=== PATIENT | female | born 1990 ===

== ENCOUNTER 2021-11-13 13:13 | Emergency (ER) | payer OTHER, MEDICAID, SELFPAY ==
[2021-11-13 13:15] VITALS: BP 124/84; PULSE 85; RESP 12; TEMP 37.1; O2SAT 100; BMI 21.7
[2021-11-13] MEDS: ONDANSETRON 4 MG ODT SL (13:25)
--- NOTE | 2021-11-13 15:43 | ED_ITS ---
HPI - Nausea/Vomiting/Diarrhea <JIA Santiago - Last Filed: 11/13/21 18:37> General Chief complaint: Nausea/Vomiting/Diarrhea Stated complaint: Vomiting for 6 days Time Seen by Provider: 11/13/21 14:59 Mode of arrival: Family Vehicle History of Present Illness HPI Narrative: This is a 31-year-old female who is with implanted implanon contraception who presents to the emergency department complaining of nausea and vomiting today, COVID infection two weeks ago with nausea vomiting over the last 5-6 days. She endorses having loose stool but no diarrhea, denies any abnormal vaginal discharge, denies any dysuria, flank pain, fevers, shortness of breath, chest pain, or chance of . She states that she is not currently sexually active, denies any vaginal itching, urinary frequency, tenderness to a certain area of her abdomen. She endorses generalized discomfort and nausea all the time. Patient denies taking any pain medication, states that she took Zofran 4 hours ago, states that she still have the symptoms despite that. States that she started her menses today but states that she does not usually have pelvic cramps. Related Data Previous Rx's Medication Instructions Recorded hydrocortisone acetate 25 mg 25 mg DE DAILY PRN hemorrhoids 2 11/13/21 rectal suppository weeks #12 ea omeprazole 20 mg capsule,delayed 20 mg PO DAILY 2 weeks #14 caps 11/13/21 release promethazine 12.5 mg tablet 12.5 mg PO Q12H PRN nausea and 11/13/21 vomiting #10 tabs Allergies Allergy/AdvReac Type Severity Reaction Status Date / Time No Known Drug Allergies Allergy Verified 11/13/21 13:21 Review of Systems <JIA Santiago - Last Filed: 11/13/21 18:37> Review of Systems Narrative: General: denies fever, chills, endorses persistent nausea Head/Neck: denies headache, neck pain Eyes: denies visual changes, eye pain Cardio: denies chest pain, palpitations Respiratory: denies shortness of breath, cough GI: Endorses generalized abdominal discomfort with nausea and vomiting, denies any constipation, endorses loose stools : denies dysuria, hematuria or flank pain, endorses she started her menses today MSK: denies new joint pain, muscle weakness or swelling Skin: denies rash, itching or wound Neuro: denies numbness, tingling, dizziness Patient History <JIA Santiago - Last Filed: 11/13/21 18:37> Social History Smoking Status: Never smoker Smoking Status: Never smoker Substance Use Type: does not use Exam <JIA Santiago - Last Filed: 11/13/21 18:37> Narrative Exam Narrative: Independently reviewed vitals signs and nursing notes. General: cooperative, comfortable, in no acute distress, well groomed Head: atraumatic, symmetrical facial expressions Neck: supple Eyes: equal round and reactive, EOMI, conjunctiva normal Nose: nares patent, no rhinorrhea Mouth/Throat: moist mucus membranes Cardiovascular: regular rate and rhythm, no peripheral edema, warm extremities Respiratory: normal effort, able to speak in complete sentences, no audible wheezing, stridor, or rales. No retractions or tachypnea. GI: abdomen soft, nontender to palpation, nondistended, no masses, no exquisite tenderness with exam, without guarding or rebound. MSK: moves all extremities, neurovascularly intact, no weakness, normal tone Skin: brisk capillary refill, no rash, no erythema Neuro: normal speech and cognition, A&O x3 Psych: mental status is grossly normal, congruent mood, normal affect, pleasant and cooperative Initial Vital Signs Initial Vital Signs: Vital Signs Temperature 98.8 F 11/13/21 13:15 Pulse Rate 85 11/13/21 13:15 Respiratory Rate 12 11/13/21 13:15 Blood Pressure 124/84 11/13/21 13:15 Pulse Oximetry 100 11/13/21 13:15 Oxygen Delivery Method 11/13/21 13:15 <Nunu Mckinley DO - Last Filed: 11/15/21 13:15> Initial Vital Signs Initial Vital Signs: Vital Signs Temperature 98.8 F 11/13/21 13:15 Pulse Rate 85 11/13/21 13:15 Respiratory Rate 12 11/13/21 13:15 Blood Pressure 124/84 11/13/21 13:15 Pulse Oximetry 100 11/13/21 13:15 Oxygen Delivery Method 11/13/21 13:15 Course <Eleanor Rick [facility] - Last Filed: 11/13/21 18:37> Orders Ordered: Discontinued Medications Sodium Chloride (Normal Saline 0.9%) 1,000 mls @ 1,000 mls/hr IV BOLUS ONE Stop: 11/13/21 17:56 Last Admin: 11/13/21 17:08 Dose: 1,000 mls/hr Documented By: DEB Ketorolac Tromethamine (Ketorolac 30 Mg/Ml Vial) 15 mg IV NOW ONE Stop: 11/13/21 15:43 Last Admin: 11/13/21 15:55 Dose: 15 mg Documented By: DEB Ondansetron HCl (Ondansetron 4 Mg Odt) 4 mg SL NOW ONE Stop: 11/13/21 13:22 Last Admin: 11/13/21 13:25 Dose: 4 mg Documented By: MANJU Pantoprazole Sodium (Pantoprazole 40 Mg Vial) 20 mg IV NOW ONE Stop: 11/13/21 17:33 Last Admin: 11/13/21 17:40 Dose: 20 mg Documented By: DEB Promethazine HCl (Promethazine 25 Mg Tablet) 12.5 mg PO NOW ONE Stop: 11/13/21 17:33 Last Admin: 11/13/21 17:57 Dose: Not Given Documented By: DEB Vital Signs Vital signs: Vital Signs - 8 hr 11/13/21 13:15 Temperature 98.8 F Pulse Rate 85 Respiratory Rate 12 Blood Pressure 124/84 Pulse Oximetry 100 Oxygen Delivery Method Room Air <Nunu Mckinley DO - Last Filed: 11/15/21 13:15> Orders Ordered: Discontinued Medications Sodium Chloride (Normal Saline 0.9%) 1,000 mls @ 1,000 mls/hr IV BOLUS ONE Stop: 11/13/21 17:56 Last Admin: 11/13/21 17:08 Dose: 1,000 mls/hr Documented By: DEB Ketorolac Tromethamine (Ketorolac 30 Mg/Ml Vial) 15 mg IV NOW ONE Stop: 11/13/21 15:43 Last Admin: 11/13/21 15:55 Dose: 15 mg Documented By: DEB Ondansetron HCl (Ondansetron 4 Mg Odt) 4 mg SL NOW ONE Stop: 11/13/21 13:22 Last Admin: 11/13/21 13:25 Dose: 4 mg Documented By: MANJU Pantoprazole Sodium (Pantoprazole 40 Mg Vial) 20 mg IV NOW ONE Stop: 11/13/21 17:33 Last Admin: 11/13/21 17:40 Dose: 20 mg Documented By: DEB Promethazine HCl (Promethazine 25 Mg Tablet) 12.5 mg PO NOW ONE Stop: 11/13/21 17:33 Last Admin: 11/13/21 17:57 Dose: Not Given Documented By: DEB Vital Signs Vital signs: Vital Signs - 8 hr 11/13/21 13:15 Temperature 98.8 F Pulse Rate 85 Respiratory Rate 12 Blood Pressure 124/84 Pulse Oximetry 100 Oxygen Delivery Method Room Air MDM - Nausea/Vomiting/Diarrhea <JIA Santiago - Last Filed: 11/13/21 18:37> Lab Data Result diagrams: 11/13/21 15:40 11/13/21 15:40 Labs: Lab Results 11/13/21 11/13/21 11/13/21 Range/Units 15:40 15:40 15:59 WBC 9.4 (4.5-11.0) X10^3/uL RBC 5.31 H (4.0-5.2) X10^6/uL Hgb 16.1 H (12.0-16.0) g/dL Hct 46.8 H (36-46) % MCV 88.1 (80-100) fL MCH 30.3 (26-34) PG MCHC 34.4 (30-36) % RDW 13.1 (11.6-14.8) % Plt Count 374 (150-400) X10^3/uL Neut % (Auto) 76.6 H (50-75) % Lymph % (Auto) 15.9 L (25-40) % [place] % (Auto) 6.8 (3-14) % Eos % (Auto) 0.1 L (2-4) % Baso % (Auto) 0.6 (0-2) % Neut # (Auto) 7200 H (4942-3371) /uL Lymph # (Auto) 1500 (1762-6488) /uL [place] # (Auto) 600 (0-900) /uL Eos # (Auto) 0 (0-450) /uL Baso # (Auto) 100 (0-100) /uL Sodium 137 (137-145) mmol/L Potassium 3.5 (3.4-5.1) mmol/L Chloride 98 (98-107) mmol/L Carbon Dioxide 23 (22-32) mmol/L BUN 15 (7-17) mg/dL Creatinine 1.01 (0.52-1.04) mg/dL Estimated GFR > 60 (>60) mL/min BUN/Creatinine Ratio 14.9 (6-22) Glucose 88 (70-100) mg/dL Calcium 9.7 (8.4-10.2) mg/dL Total Bilirubin 1.6 H (0.2-1.3) mg/dL AST 26 (14-36) IU/L ALT 17 (<35) IU/L Alkaline Phosphatase 81 (38-126) U/L Total Protein 9.8 H (6.3-8.2) g/dL Albumin 5.6 H (3.5-5.0) g/dL Globulin 4.2 H (1.7-4.1) g/dL Albumin/Globulin Ratio 1.3 (1.0-2.8) Lipase 84 (23-300) U/L Ur Bilirubin Confirm (Negative) Urine RBC (0-5/HPF) Urine WBC (0-5/HPF) Ur Squamous Epith Cells (0-5/HPF) Calcium Oxalate Crystal Urine Bacteria (None) Urine Mucus (Negative) Ur Culture Indicated? SARS-CoV-2 (PCR) Negative (Negative) 11/13/21 11/13/21 Range/Units 16:00 16:00 WBC (4.5-11.0) X10^3/uL RBC (4.0-5.2) X10^6/uL Hgb (12.0-16.0) g/dL Hct (36-46) % MCV (80-100) fL MCH (26-34) PG MCHC (30-36) % RDW (11.6-14.8) % Plt Count (150-400) X10^3/uL Neut % (Auto) (50-75) % Lymph % (Auto) (25-40) % [place] % (Auto) (3-14) % Eos % (Auto) (2-4) % Baso % (Auto) (0-2) % Neut # (Auto) (5569-4835) /uL Lymph # (Auto) (8065-5681) /uL [place] # (Auto) (0-900) /uL Eos # (Auto) (0-450) /uL Baso # (Auto) (0-100) /uL Sodium (137-145) mmol/L Potassium (3.4-5.1) mmol/L Chloride (98-107) mmol/L Carbon Dioxide (22-32) mmol/L BUN (7-17) mg/dL Creatinine (0.52-1.04) mg/dL Estimated GFR (>60) mL/min BUN/Creatinine Ratio (6-22) Glucose (70-100) mg/dL Calcium (8.4-10.2) mg/dL Total Bilirubin (0.2-1.3) mg/dL AST (14-36) IU/L ALT (<35) IU/L Alkaline Phosphatase (38-126) U/L Total Protein (6.3-8.2) g/dL Albumin (3.5-5.0) g/dL Globulin (1.7-4.1) g/dL Albumin/Globulin Ratio (1.0-2.8) Lipase (23-300) U/L Ur Bilirubin Confirm Negative (Negative) Urine RBC 0-1/hpf (0-5/HPF) Urine WBC 1-5/hpf (0-5/HPF) Ur Squamous Epith Cells 0-1 /hpf (0-5/HPF) Calcium Oxalate Crystal Few H Urine Bacteria Occasional (0-1) (None) Urine Mucus 2+ H (Negative) Ur Culture Indicated? Cult not indicated SARS-CoV-2 (PCR) (Negative) Point of Care Testing Test Results Negative Urine Dip Bedside Urine Glucose Negative Bedside Urine Bilirubin + 1 Bedside Urine Ketone +++ 80 Urine Specific [place] 1.025 Bedside Urine Occult Blood +++ Bedside Urine pH 6.0 Bedside Urine Protein + 30 Bedside Urine Urobilinogen 1+ 2mg Bedside Urine Nitrite - Negative Bedside Urine Leukocytes - Negative Esterase Imaging Data CT scan - abdomen/pelvis: Radiologist's Impression: PROCEDURE:? CT ABDOMEN PELVIS W CON ? INDICATIONS:? T bili elevated,rt flank pain, low abdomen discomfort ? TECHNIQUE:? After the administration of intravenous contrast, axial sections acquired from the lung bases to the pubic symphysis.? Coronal and sagittal reformats were performed.? For radiation dose reduction, the following was used:? automated exposure control, adjustment of mA and/or kV according to patient size.? ? COMPARISON:? None. ? FINDINGS:? Image quality:? Excellent.? ? Lung bases:? Unremarkable. Heart:? No significant findings. ? ABDOMEN: Liver:? Unremarkable.? ? Gallbladder:? Unremarkable.? ? Biliary ducts:? Unremarkable.? ? Pancreas:? Unremarkable.? ? Spleen:? Unremarkable.? ? Adrenal Glands:? Unremarkable.? ? Kidneys and Ureters:? Unremarkable.? ? ? Stomach and Bowel:? Mild bowel wall thickening versus underdistention in the stomach and the colon Peritoneum:? No abnormal intraperitoneal fluid.? No free air.? ? Ventral Wall: ? No hernias.? Abdominal Nodes:? No retroperitoneal or mesenteric adenopathy by size criteria.? Vessels:? Aorta and inferior vena cava are normal in size.? ? PELVIS: Pelvic Organs:? Unremarkable.? ? Bladder:? Unremarkable.? ? Pelvic Nodes: No enlarged lymph nodes.? Miscellaneous: No hernias are seen. ? ? ? Bones:? Unremarkable.? IMPRESSION:? 1. Mild diffuse bowel wall thickening in the colon and the stomach, which could be related to underdistention versus a mild colitis and/or gastritis. ? 2. Normal gallbladder.? No biliary ductal dilatation.? No renal or ureteral calculus or hydronephrosis.? ? Dictated by: Bradley Soto M.D. on 11/13/2021 at 17:09 ? ? Approved by: Bradley Soto M.D. on 11/13/2021 at 17:14 ? [facility] Narrative Medical decision making narrative: This is a 31 female who presents to the emergency department complaining of nausea and vomiting over the last five or six days without known trigger. She states that she was COVID positive two weeks ago but her COVID PCR was negative today. She endorses nausea vomiting with loose stools but denies recent fevers, blood in her stool, endorses having hemorrhoids since her but denies any other significant symptom. Her lab work does not show leukocytosis however she does appear hemoconcentrated and mildly dehydrated. She was given 1 L of normal saline, 4 mg of IV Zofran, this helped her nausea vomiting. Her lipase was 84, her urine dip was positive for multiple things, her microscopy shows calcium oxalate crystals, occasional urine bacteria, mucus without indication for culture. There were no wbc's, rbc's or bilirubin. Her total bilirubin was elevated at 1.6, this could be proportionally increased related to her dehydration. She does not have any abdominal pain to palpation in any quadrant or flank pain. CT abdomen was obtained for concern about bilirubin with any obstructive pathology. Abdominal CT shows mild diffuse bowel wall thickening in the colon and the stomach which could be related to under distension verses a mild colitis and/or gastritis. Normal gallbladder, no biliary ductal dilatation no renal or ureteral calculi or hydronephrosis. She has not had any abdominal surgical history, she is a without any complaint of vaginal secretions. Her nausea vomiting improved, she endorses having hemorrhoid since her pregnan cy, she was given suppositories of hydrocortisone for this, she was prescribed omeprazole for GI ulcer prophylaxis, she is given prescription of ODT Zofran and promethazine 12.5 mg for intractable nausea vomiting. Encouraged her to follow a clear liquid diet for the next few days, follow-up with her primary care provider if her symptoms persist. Return to the emergency department if she develops a fever, any worsening of her symptoms, blood in her stool or her emesis. No peritoneal signs on abdominal exam. Patient remains p.o. tolerant. Serial abdominal exam without increase in abdominal pain. Given history and exam, low suspicion for acute abdominal process, such as acute cholecystitis, pancreatitis, perforated viscus, atypical appendicitis, colitis, diverticulitis or torsion. Extensive conversation about ER return precautions and need for close follow-up. Patient reports feeling much better after 1 L normal saline, antiemetics, and pain medication. She understands to return for any worsening of her symptoms and will follow-up with her primary care providers at home. Patient is appropriate and amenable to discharge home. Vital signs are stable on repeat examination is unremarkable. Patient has been informed of results. Patient has been given strict return to ER precautions for any new or worsening symptoms. Patient understands to follow up closely with outpatient providers as instructed. Patient understands plan and agrees to discharge home. All questions and concerns answered at this time. <Nunu Mckinley, DO - Last Filed: 11/15/21 13:15> Lab Data Labs: Lab Results 11/13/21 11/13/2111/13/22 Range/Units 15:40 15:40 15:59 WBC 9.4 (4.5-11.0) X10^3/uL RBC 5.31 H (4.0-5.2) X10^6/uL Hgb 16.1 H (12.0-16.0) g/dL Hct 46.8 H (36-46) % MCV 88.1 (80-100) fL MCH 30.3 (26-34) PG MCHC 34.4 (30-36) % RDW 13.1 (11.6-14.8) % Plt Count 374 (150-400) X10^3/uL Neut % (Auto) 76.6 H (50-75) % Lymph % (Auto) 15.9 L (25-40) % [place] % (Auto) 6.8 (3-14) % Eos % (Auto) 0.1 L (2-4) % Baso % (Auto) 0.6 (0-2) % Neut # (Auto) 7200 H (6155-3666) /uL Lymph # (Auto) 1500 (0458-5312) /uL [place] # (Auto) 600 (0-900) /uL Eos # (Auto) 0 (0-450) /uL Baso # (Auto) 100 (0-100) /uL Sodium 137 (137-145) mmol/L Potassium 3.5 (3.4-5.1) mmol/L Chloride 98 (98-107) mmol/L Carbon Dioxide 23 (22-32) mmol/L BUN 15 (7-17) mg/dL Creatinine 1.01 (0.52-1.04) mg/dL Estimated GFR > 60 (>60) mL/min BUN/Creatinine Ratio 14.9 (6-22) Glucose 88 (70-100) mg/dL Calcium 9.7 (8.4-10.2) mg/dL Total Bilirubin 1.6 H (0.2-1.3) mg/dL AST 26 (14-36) IU/L ALT 17 (<35) IU/L Alkaline Phosphatase 81 (38-126) U/L Total Protein 9.8 H (6.3-8.2) g/dL Albumin 5.6 H (3.5-5.0) g/dL Globulin 4.2 H (1.7-4.1) g/dL Albumin/Globulin Ratio 1.3 (1.0-2.8) Lipase 84 (23-300) U/L Ur Bilirubin Confirm (Negative) Urine RBC (0-5/HPF) Urine WBC (0-5/HPF) Ur Squamous Epith Cells (0-5/HPF) Calcium Oxalate Crystal Urine Bacteria (None) Urine Mucus (Negative) Ur Culture Indicated? SARS-CoV-2 (PCR) Negative (Negative) 11/13/21 11/13/21 Range/Units 16:00 16:00 WBC (4.5-11.0) X10^3/uL RBC (4.0-5.2) X10^6/uL Hgb (12.0-16.0) g/dL Hct (36-46) % MCV (80-100) fL MCH (26-34) PG MCHC (30-36) % RDW (11.6-14.8) % Plt Count (150-400) X10^3/uL Neut % (Auto) (50-75) % Lymph % (Auto) (25-40) % [place] % (Auto) (3-14) % Eos % (Auto) (2-4) % Baso % (Auto) (0-2) % Neut # (Auto) (7865-2565) /uL Lymph # (Auto) (8187-3352) /uL [place] # (Auto) (0-900) /uL Eos # (Auto) (0-450) /uL Baso # (Auto) (0-100) /uL Sodium (137-145) mmol/L Potassium (3.4-5.1) mmol/L Chloride (98-107) mmol/L Carbon Dioxide (22-32) mmol/L BUN (7-17) mg/dL Creatinine (0.52-1.04) mg/dL Estimated GFR (>60) mL/min BUN/Creatinine Ratio (6-22) Glucose (70-100) mg/dL Calcium (8.4-10.2) mg/dL Total Bilirubin (0.2-1.3) mg/dL AST (14-36) IU/L ALT (<35) IU/L Alkaline Phosphatase (38-126) U/L Total Protein (6.3-8.2) g/dL Albumin (3.5-5.0) g/dL Globulin (1.7-4.1) g/dL Albumin/Globulin Ratio (1.0-2.8) Lipase (23-300) U/L Ur Bilirubin Confirm Negative (Negative) Urine RBC 0-1/hpf (0-5/HPF) Urine WBC 1-5/hpf (0-5/HPF) Ur Squamous Epith Cells 0-1 /hpf (0-5/HPF) Calcium Oxalate Crystal Few H Urine Bacteria Occasional (0-1) (None) Urine Mucus 2+ H (Negative) Ur Culture Indicated? Cult not indicated SARS-CoV-2 (PCR) (Negative) Point of Care Testing Test Results Negative Urine Dip Bedside Urine Glucose Negative Bedside Urine Bilirubin + 1 Bedside Urine Ketone +++ 80 Urine Specific [place] 1.025 Bedside Urine Occult Blood +++ Bedside Urine pH 6.0 Bedside Urine Protein + 30 Bedside Urine Urobilinogen 1+ 2mg Bedside Urine Nitrite - Negative Bedside Urine Leukocytes - Negative Esterase Discharge Plan Departure Patient Disposition: Home Clinical Impression: Colitis Hemorrhoid Qualifiers: Hemorrhoid type: unspecified Qualified Code(s): K64.9 - Unspecified hemorrhoids Vomiting Qualifiers: Vomiting type: unspecified Nausea presence: with nausea Qualified Code(s): R11.2 - Nausea with vomiting, unspecified Instructions: Viral Gastroenteritis, DI for Nausea -- Adult, DI for Colitis Activity Restrictions/Additional Instructions: *You have been diagnosed with colitis and gastritis your colon and your stomach were inflamed appearing on CT scan. Please use ibuprofen and or Tylenol as needed for your pain, take it with food and water to coat her stomach. Please use omeprazole in the morning before any medications to help prevent your stomach from ulcer. Please use dull suppositories as needed for your hemorrhoidal pain. Follow-up with your primary doctor when you get back home. You could have colitis due to COVID illness, try and stay hydrated, use Phenergan if Zofran is not helpful for your nausea and vomiting. *What to do: *Please continue to take your regular medications as directed. [x ] New medication prescriptions sent to your pharmacy: [ [facility]] [ ] New medication written as a paper prescription [ ] No new medications given *Please follow up with your primary care provider in 2-3 days, call for an appointment. Let them know you were seen in the Emergency Department and that we asked that you be seen for follow-up. We will electronically transmit a record of today's note if your PCP is in our system *If you do not have a primary care provider please contact [phone] to establish care with one of the [facility] primary care providers. *Return to Emergency Department if you should have any new, worsening or concerning symptoms, such as [fever greater than 101F, chills, worsening pain, persistent vomiting or other bothersome symptoms] Prescriptions: New hydrocortisone acetate 25 mg suppository 25 mg DE DAILY PRN (Reason: hemorrhoids) 14 Days Qty: 12 0RF promethazine 12.5 mg tablet 12.5 mg PO Q12H PRN (Reason: nausea and vomiting) Qty: 10 0RF omeprazole 20 mg capsule,delayed release(DR/EC) 20 mg PO DAILY 14 Days Qty: 14 0RF Referrals: Chad Glynn MD [Primary Care Provider] - Visit Report Forms: Patient Portal/API <Nunu Mckinley DO - Last Filed: 11/15/21 13:15> Cosign ED Attending Maryature Attestation: I was immediately available in the department for consultation. Documentation has been reviewed. I agree with assessment and plan.
[2021-11-13 15:46] LABS: Add Manual Diff / Slide Review NO; Basophils Absolute Auto 100 /uL (0-100); Basophils Percent Auto 0.6 % (0-2); Eosinophils Absolute Auto 0 /uL (0-450); Eosinophils Percent Auto 0.1 % (2-4); Hematocrit 46.8 % (36-46); Hemoglobin 16.1 g/dL (12.0-16.0); Lymphocytes Absolute Auto 1500 /uL (1100-4500); Lymphocytes Percent Auto 15.9 % (25-40); Mean Corpuscular HGB Conc 34.4 % (30-36); Mean Corpuscular Hemoglobin 30.3 PG (26-34); Mean Corpuscular Volume 88.1 fL (80-100); Monocytes Absolute Auto 600 /uL (0-900); Monocytes Percent Auto 6.8 % (3-14); Neutrophils Absolute Auto 7200 /uL (1500-7000); Neutrophils Percent Auto 76.6 % (50-75); Platelet Count 374 X10^3/uL (150-400); Red Blood Cell Count 5.31 X10^6/uL (4.0-5.2); Red Cell Distribution Width 13.1 % (11.6-14.8); White Blood Cell Count 9.4 X10^3/uL (4.5-11.0)
[2021-11-13] MEDS: KETOROLAC 30 MG/ML VIAL 15 MG IV (15:55)
[2021-11-13 16:01] LABS: Alanine Aminotransferase 17 IU/L (<35); Albumin 5.6 g/dL (3.5-5.0); Albumin Globulin Ratio 1.3 (1.0-2.8); Alkaline Phosphatase 81 U/L (38-126); Aspartate Aminotransferase 26 IU/L (14-36); BUN Creatinine Ratio 14.9 (6-22); Bilirubin Total 1.6 mg/dL (0.2-1.3); Blood Urea Nitrogen 15 mg/dL (7-17); Calcium 9.7 mg/dL (8.4-10.2); Carbon Dioxide 23 mmol/L (22-32); Chloride 98 mmol/L (98-107); Estimated Glomerular Filt Rate > 60 mL/min (>60); Globulin 4.2 g/dL (1.7-4.1); Glucose 88 mg/dL (70-100); HEMOLYSIS < 15 (0-50); Lipase 84 U/L (23-300); Potassium 3.5 mmol/L (3.4-5.1); Sodium 137 mmol/L (137-145); Total Protein 9.8 g/dL (6.3-8.2)
[2021-11-13 16:06] LABS: Ictotest Urine Negative (Negative)
[2021-11-13 16:21] LABS: RBC Urine 0-1/HPF (0-5/HPF)
[2021-11-13 16:22] LABS: Bacteria Urine Occasional (0-1); Calcium Oxalate Crystals Urine Few; Culture Indicated Urine Cult Not Indicated; Mucus Urine 2+ (Negative); Squamous Epithelial Cell Urine 0-1 /HPF (0-5/HPF); WBC Urine 1-5/HPF (0-5/HPF)
[2021-11-13 16:30] LABS: COVID19 -Nasal RAPID Negative (Negative)
--- NOTE | 2021-11-13 16:46 | DI.CT.S_ITS ---
PROCEDURE: CT ABDOMEN PELVIS W CON INDICATIONS: T bili elevated,rt flank pain, low abdomen discomfort TECHNIQUE: After the administration of intravenous contrast, axial sections acquired from the lung bases to the pubic symphysis. Coronal and sagittal reformats were performed. For radiation dose reduction, the following was used: automated exposure control, adjustment of mA and/or kV according to patient size. COMPARISON: None. FINDINGS: Image quality: Excellent. Lung bases: Unremarkable. Heart: No significant findings. ABDOMEN: Liver: Unremarkable. Gallbladder: Unremarkable. Biliary ducts: Unremarkable. Pancreas: Unremarkable. Spleen: Unremarkable. Adrenal Glands: Unremarkable. Kidneys and Ureters: Unremarkable. Stomach and Bowel: Mild bowel wall thickening versus underdistention in the stomach and the colon Peritoneum: No abnormal intraperitoneal fluid. No free air. Ventral Wall: No hernias. Abdominal Nodes: No retroperitoneal or mesenteric adenopathy by size criteria. Vessels: Aorta and inferior vena cava are normal in size. PELVIS: Pelvic Organs: Unremarkable. Bladder: Unremarkable. Pelvic Nodes: No enlarged lymph nodes. Miscellaneous: No hernias are seen. Bones: Unremarkable. IMPRESSION: 1. Mild diffuse bowel wall thickening in the colon and the stomach, which could be related to underdistention versus a mild colitis and/or gastritis. 2. Normal gallbladder. No biliary ductal dilatation. No renal or ureteral calculus or hydronephrosis. Dictated by: Bradley Soto M.D. on 11/13/2021 at 17:09 Approved by: Bradley Soto M.D. on 11/13/2021 at 17:14
[2021-11-13] MEDS: SODIUM CHLORIDE 0.9% 1,000 ML 1000 ML IV (17:08)
[2021-11-13] MEDS: PANTOPRAZOLE 40 MG VIAL 20 MG IV (17:40)
--- NOTE | 2021-11-14 10:27 | PC.NURSE ---
[facility] did not accept patient's insurance. pt needed the hydrocortisone acetate pr and ondansetron 4 mg tab. called in to [facility]. call complete.
== END 2021-11-13 17:57 | disposition home or self-care (01) ==
PROVIDERS: Emergency Medicine; Emergency Provider Nurse Practitioner Critical Care Medicine; Family Provider Family Medicine; PCP Family Medicine
DX: K52.9 Noninfective gastroenteritis and colitis, unspecified (principal); K64.9 Unspecified hemorrhoids; R11.2 Nausea with vomiting, unspecified; Z20.822 Contact with and (suspected) exposure to COVID-19
CPT/HCPCS: 36415; 74177; 80053; 81003; 81015; 81025; 83690; 85025; 87086; 87635; 96374; 96375; 99284; C9803; C9113; J1885

== ENCOUNTER 2021-11-15 14:28 | Emergency (ER) | payer OTHER, MEDICAID, SELFPAY ==
[2021-11-15 14:43] VITALS: BP 133/73; PULSE 72; RESP 16; TEMP 37.1; O2SAT 99; BMI 21.7
--- NOTE | 2021-11-15 15:47 | DI.RAD.S_ITS ---
PROCEDURE: XR ACUTE ABDOMEN SERIES INDICATIONS: Persistent vomiting and LUQ abdominal pain TECHNIQUE: One view chest and two views of the abdomen were acquired. COMPARISON: None. FINDINGS: Surgical changes and devices: None. Chest: Lungs are clear. Heart size is normal. No pleural effusions. No pneumoperitoneum. Abdomen: Bowel gas pattern is normal. No suspicious calcifications. Visualized solid organ contours appear normal. Bones: No suspicious bony lesions. IMPRESSION: No acute cardiopulmonary or intra-abdominal findings. Dictated by: Lauren Carroll M.D. on 11/15/2021 at 16:10 Approved by: Lauren Carroll M.D. on 11/15/2021 at 16:11
[2021-11-15 16:18] LABS: Add Manual Diff / Slide Review NO; Basophils Absolute Auto 0 /uL (0-100); Basophils Percent Auto 0.4 % (0-2); Eosinophils Absolute Auto 0 /uL (0-450); Eosinophils Percent Auto 0.1 % (2-4); Hematocrit 45.5 % (36-46); Hemoglobin 15.2 g/dL (12.0-16.0); Lymphocytes Absolute Auto 1100 /uL (1100-4500); Lymphocytes Percent Auto 10.4 % (25-40); Mean Corpuscular HGB Conc 33.4 % (30-36); Mean Corpuscular Hemoglobin 30.4 PG (26-34); Monocytes Absolute Auto 500 /uL (0-900); Monocytes Percent Auto 4.7 % (3-14); Neutrophils Absolute Auto 8700 /uL (1500-7000); Neutrophils Percent Auto 84.4 % (50-75); Platelet Count 353 X10^3/uL (150-400); Red Cell Distribution Width 12.9 % (11.6-14.8); White Blood Cell Count 10.3 X10^3/uL (4.5-11.0)
[2021-11-15] MEDS: SODIUM CHLORIDE 0.9% 1,000 ML 1000 ML IV (16:22)
[2021-11-15] MEDS: ONDANSETRON 4 MG/2 ML INJ IV (16:22)
[2021-11-15 16:33] LABS: Alanine Aminotransferase 16 IU/L (<35); Albumin 4.9 g/dL (3.5-5.0); Albumin Globulin Ratio 1.3 (1.0-2.8); Alkaline Phosphatase 67 U/L (38-126); Aspartate Aminotransferase 29 IU/L (14-36); BUN Creatinine Ratio 12.7 (6-22); Bilirubin Total 1.4 mg/dL (0.2-1.3); Blood Urea Nitrogen 10 mg/dL (7-17); Calcium 9.2 mg/dL (8.4-10.2); Carbon Dioxide 15 mmol/L (22-32); Chloride 108 mmol/L (98-107); Estimated Glomerular Filt Rate > 60 mL/min (>60); Globulin 3.7 g/dL (1.7-4.1); Glucose 98 mg/dL (70-100); Lipase 114 U/L (23-300); Sodium 140 mmol/L (137-145); Total Protein 8.6 g/dL (6.3-8.2)
--- NOTE | 2021-11-15 16:39 | ED_ITS ---
HPI - Nausea/Vomiting/Diarrhea <Huy Godinez PA-C - Last Filed: 11/15/21 19:19> General Chief complaint: Nausea/Vomiting/Diarrhea Stated complaint: Vomiting- here on friday Time Seen by Provider: 11/15/21 14:50 Source: patient Mode of arrival: Wheelchair History of Present Illness HPI Narrative: This is a 31-year-old female presents to the emergency department due to continued nausea and vomiting. Patient reports being seen a couple days ago for similar symptoms with roughly 5 days of nausea vomiting prior to that. Does not recall any abnormal changes in diet or other exposures or cause the vomiting but did report having COVID roughly 3 weeks ago. Denies any significant acute abdominal pain, fevers, chills, dysuria, or any other concerning signs or symptoms. Patient does report having Hospital history of gastric ulcers to to have the ibuprofen uses child which she thinks may be causing her symptoms. Related Data Previous Rx's Medication Instructions Recorded hydrocortisone acetate 25 mg 25 mg PA DAILY PRN hemorrhoids 2 11/13/21 rectal suppository weeks #12 ea omeprazole 20 mg capsule,delayed 20 mg PO DAILY 2 weeks #14 caps 11/13/21 release promethazine 12.5 mg tablet 12.5 mg PO Q12H PRN nausea and 11/13/21 vomiting #10 tabs ondansetron 4 mg disintegrating 4 mg PO Q8H 7 days #21 tabs 11/15/21 tablet ondansetron 4 mg disintegrating 4 mg PO Q8H PRN nausea and 11/15/21 tablet vomiting 7 days #21 tabs pantoprazole 40 mg tablet,delayed 40 mg PO DAILY 14 days #14 tabs 11/15/21 release pantoprazole 40 mg tablet,delayed 40 mg PO DAILY 14 days #14 tabs 11/15/21 release Allergies Allergy/AdvReac Type Severity Reaction Status Date / Time No Known Drug Allergies Allergy Verified 11/15/21 14:43 Review of Systems <Huy Godinez PA-C - Last Filed: 11/15/21 19:19> Review of Systems Narrative: GENERAL: Denies chills, fatigue, malaise, fever, sweats. HEENT: Denies sinus pain, ear pain, sore throat, difficulty swallowing, dizziness. RESPIRATORY: Denies dyspnea, cough, wheezing, hemoptysis, sputum. CARDIOVASCULAR: Denies chest pain, palpitations, orthopnea, edema, GASTROINTESTINAL: Reports nausea and vomiting, denies abdominal pain, diarrhea, constipation, melena. : Denies dysuria, frequency, incontinence, hematuria, urinary retention. MUSCULOSKELETAL: denies weakness, joint pain, or bony pain SKIN: Denies rash, skin lesions, or other NEUROLOGIC: Denies weakness, headache, numbness, change in speech, confusion, seizures, incoordination. PSYCHIATRIC: No concerning psychosocial issues. 12 point review of systems is negative except for those stated above Patient History <Huy Godinez PA-C - Last Filed: 11/15/21 19:19> Social History Smoking Status: Never smoker Smoking Status: Never smoker alcohol intake frequency: holidays/special occasions only Substance Use Type: does not use Exam <Huy Godinez PA-C - Last Filed: 11/15/21 19:19> Narrative Exam Narrative: GENERAL: Well-developed patient, in mild distress. HEAD: Atraumatic. Normocephalic. EYES: Pupils equal round and reactive. Extraocular motions intact. No scleral icterus. No injection or drainage. ENT: Nose without bleeding, purulent drainage. Throat without erythema, tonsillar hypertrophy or exudate. Airway patent. NECK: Trachea midline. Non tender CARDIOVASCULAR: Regular rate and rhythm without murmurs, gallops, or rubs. RESPIRATORY: Clear to auscultation. Breath sounds equal bilaterally. No wheezes, rales, or rhonchi. GASTROINTESTINAL: Abdomen soft, non-tender, nondistended. EXTREMITIES: No edema or joint tenderness. BACK: Nontender without deformity or crepitance. No flank tenderness. NEURO: AOx3. SKIN: No rash or erythema of visible areas Initial Vital Signs Initial Vital Signs: Vital Signs Temperature 98.8 F 11/15/21 14:43 Pulse Rate 72 11/15/21 14:43 Respiratory Rate 16 11/15/21 14:43 Blood Pressure 133/73 11/15/21 14:43 Pulse Oximetry 99 11/15/21 14:43 Oxygen Delivery Method 11/15/21 14:43 <Nunu Mckinley DO - Last Filed: 11/16/21 09:48> Initial Vital Signs Initial Vital Signs: Vital Signs Temperature 98.8 F 11/15/21 14:43 Pulse Rate 72 11/15/21 14:43 Respiratory Rate 16 11/15/21 14:43 Blood Pressure 133/73 11/15/21 14:43 Pulse Oximetry 99 11/15/21 14:43 Oxygen Delivery Method 11/15/21 14:43 Course <Huy Godinez PA-C - Last Filed: 11/15/21 19:19> Orders Ordered: Discontinued Medications Al Hydrox/Mg Hydrox/Simethicone (Mag Hydrox/Alum/Simeth 30 Ml Udc) 30 ml PO NOW ONE Stop: 11/15/21 17:54 Last Admin: 11/15/21 18:03 Dose: 30 ml Documented By: AT Sodium Chloride (Normal Saline 0.9%) 1,000 mls @ 1,000 mls/hr IV BOLUS ONE Stop: 11/15/21 16:46 Last Infusion: 11/15/21 17:24 Dose: 0 mls/hr Documented By: Admin: 11/15/21 16:22 Dose: 1,000 mls/hr Documented By: AT Lidocaine HCl (Lidocaine Viscous 2% 15 Ml Solution) 15 ml PO NOW ONE Stop: 11/15/21 17:54 Last Admin: 11/15/21 18:03 Dose: 15 ml Documented By: AT Metoclopramide HCl (Metoclopramide 10 Mg/2 Ml Inj) 10 mg IV NOW ONE Stop: 11/15/21 17:54 Last Admin: 11/15/21 18:03 Dose: 10 mg Documented By: AT Ondansetron HCl (Ondansetron 4 Mg/2 Ml Inj) 4 mg IV NOW ONE Stop: 11/15/21 15:48 Last Admin: 11/15/21 16:22 Dose: 4 mg Documented By: AT Pantoprazole Sodium (Pantoprazole 40 Mg Vial) 40 mg IV NOW ONE Stop: 11/15/21 17:54 Last Admin: 11/15/21 18:03 Dose: 40 mg Documented By: AT Vital Signs Vital signs: Vital Signs - 8 hr 11/15/21 14:43 Temperature 98.8 F Pulse Rate 72 Respiratory Rate 16 Blood Pressure 133/73 Pulse Oximetry 99 Oxygen Delivery Method Room Air <Nunu Mckinley DO - Last Filed: 11/16/21 09:48> Orders Ordered: Discontinued Medications Al Hydrox/Mg Hydrox/Simethicone (Mag Hydrox/Alum/Simeth 30 Ml Udc) 30 ml PO NOW ONE Stop: 11/15/21 17:54 Last Admin: 11/15/21 18:03 Dose: 30 ml Documented By: AT Sodium Chloride (Normal Saline 0.9%) 1,000 mls @ 1,000 mls/hr IV BOLUS ONE Stop: 11/15/21 16:46 Last Infusion: 11/15/21 17:24 Dose: 0 mls/hr Documented By: Admin: 11/15/21 16:22 Dose: 1,000 mls/hr Documented By: AT Lidocaine HCl (Lidocaine Viscous 2% 15 Ml Solution) 15 ml PO NOW ONE Stop: 11/15/21 17:54 Last Admin: 11/15/21 18:03 Dose: 15 ml Documented By: AT Metoclopramide HCl (Metoclopramide 10 Mg/2 Ml Inj) 10 mg IV NOW ONE Stop: 11/15/21 17:54 Last Admin: 11/15/21 18:03 Dose: 10 mg Documented By: AT Ondansetron HCl (Ondansetron 4 Mg/2 Ml Inj) 4 mg IV NOW ONE Stop: 11/15/21 15:48 Last Admin: 11/15/21 16:22 Dose: 4 mg Documented By: AT Pantoprazole Sodium (Pantoprazole 40 Mg Vial) 40 mg IV NOW ONE Stop: 11/15/21 17:54 Last Admin: 11/15/21 18:03 Dose: 40 mg Documented By: AT Vital Signs Vital signs: Vital Signs - 8 hr 11/15/21 14:43 Temperature 98.8 F Pulse Rate 72 Respiratory Rate 16 Blood Pressure 133/73 Pulse Oximetry 99 Oxygen Delivery Method Room Air MDM - Nausea/Vomiting/Diarrhea <Huy Godinez PA-C - Last Filed: 11/15/21 19:19> Lab Data Result diagrams: 11/15/21 16:13 11/15/21 16:13 Labs: Lab Results 11/15/21 11/15/21 11/15/21 Range/Units 16:13 16:13 16:28 WBC 10.3 (4.5-11.0) X10^3/uL RBC 5.00 (4.0-5.2) X10^6/uL Hgb 15.2 (12.0-16.0) g/dL Hct 45.5 (36-46) % MCV 91.0 (80-100) fL MCH 30.4 (26-34) PG MCHC 33.4 (30-36) % RDW 12.9 (11.6-14.8) % Plt Count 353 (150-400) X10^3/uL Neut % (Auto) 84.4 H (50-75) % Lymph % (Auto) 10.4 L (25-40) % [place] % (Auto) 4.7 (3-14) % Eos % (Auto) 0.1 L (2-4) % Baso % (Auto) 0.4 (0-2) % Neut # (Auto) 8700 H (7389-3797) /uL Lymph # (Auto) 1100 (0458-5351) /uL [place] # (Auto) 500 (0-900) /uL Eos # (Auto) 0 (0-450) /uL Baso # (Auto) 0 (0-100) /uL Sodium 140 (137-145) mmol/L Potassium 3.9 (3.4-5.1) mmol/L Chloride 108 H (98-107) mmol/L Carbon Dioxide 15 L (22-32) mmol/L BUN 10 (7-17) mg/dL Creatinine 0.79 (0.52-1.04) mg/dL Estimated GFR > 60 (>60) mL/min BUN/Creatinine Ratio 12.7 (6-22) Glucose 98 (70-100) mg/dL Calcium 9.2 (8.4-10.2) mg/dL Total Bilirubin 1.4 H (0.2-1.3) mg/dL AST 29 (14-36) IU/L ALT 16 (<35) IU/L Alkaline Phosphatase 67 (38-126) U/L Total Protein 8.6 H (6.3-8.2) g/dL Albumin 4.9 (3.5-5.0) g/dL Globulin 3.7 (1.7-4.1) g/dL Albumin/Globulin Ratio 1.3 (1.0-2.8) Lipase 114 (23-300) U/L Urine RBC None seen (0-5/HPF) Urine WBC 1-5/hpf (0-5/HPF) Ur Squamous Epith Cells 1-5 /hpf (0-5/HPF) Amorphous Sediment 1+ Urine Bacteria None seen (None) Urine Mucus 1+ H (Negative) Ur Culture Indicated? Cult not indicated Point of Care Testing Test Results Negative Urine Dip Bedside Urine Glucose Negative Bedside Urine Bilirubin - Negative Bedside Urine Ketone +++ 80 Urine Specific [place] 1.010 Bedside Urine Occult Blood - Negative Bedside Urine pH 9.0 Bedside Urine Protein + 30 Bedside Urine Urobilinogen - Negative Bedside Urine Nitrite - Negative Bedside Urine Leukocytes - Negative Esterase MDM Narrative Medical decision making narrative: This is a 31-year-old female presents to the emergency department due to continued nausea and vomiting after being seen in the emergency department 2 days ago. During the previous visit and extensive workup was performed which involved blood work, urine, and CT of the abdomen with contrast which only showed mild gastritis or possibly colitis. Lab work ordered today showed no abn ormalities. No white count concerning for infection. Shared decision making was utilized and no repeat CT ordered after discussing the risks of excessive radiation. Patient did not present with any focal abdominal tenderness on exam. Suspect symptoms may be due to possible gastric ulcers as the patient describes a heavy history of ibuprofen use. Recommended follow-up with primary care provider for possible referral would GI and endoscopy. Patient was able tolerate oral fluids and will be discharged with antiemetics and pantoprazole prescription. <Nunu Mckinley, DO - Last Filed: 11/16/21 09:48> Lab Data Labs: Lab Results 11/15/21 11/15/21 11/15/21 Range/Units 16:13 16:13 16:28 WBC 10.3 (4.5-11.0) X10^3/uL RBC 5.00 (4.0-5.2) X10^6/uL Hgb 15.2 (12.0-16.0) g/dL Hct 45.5 (36-46) % MCV 91.0 (80-100) fL MCH 30.4 (26-34) PG MCHC 33.4 (30-36) % RDW 12.9 (11.6-14.8) % Plt Count 353 (150-400) X10^3/uL Neut % (Auto) 84.4 H (50-75) % Lymph % (Auto) 10.4 L (25-40) % [place] % (Auto) 4.7 (3-14) % Eos % (Auto) 0.1 L (2-4) % Baso % (Auto) 0.4 (0-2) % Neut # (Auto) 8700 H (8017-2197) /uL Lymph # (Auto) 1100 (4305-7713) /uL [place] # (Auto) 500 (0-900) /uL Eos # (Auto) 0 (0-450) /uL Baso # (Auto) 0 (0-100) /uL Sodium 140 (137-145) mmol/L Potassium 3.9 (3.4-5.1) mmol/L Chloride 108 H (98-107) mmol/L Carbon Dioxide 15 L (22-32) mmol/L BUN 10 (7-17) mg/dL Creatinine 0.79 (0.52-1.04) mg/dL Estimated GFR > 60 (>60) mL/min BUN/Creatinine Ratio 12.7 (6-22) Glucose 98 (70-100) mg/dL Calcium 9.2 (8.4-10.2) mg/dL Total Bilirubin 1.4 H (0.2-1.3) mg/dL AST 29 (14-36) IU/L ALT 16 (<35) IU/L Alkaline Phosphatase 67 (38-126) U/L Total Protein 8.6 H (6.3-8.2) g/dL Albumin 4.9 (3.5-5.0) g/dL Globulin 3.7 (1.7-4.1) g/dL Albumin/Globulin Ratio 1.3 (1.0-2.8) Lipase 114 (23-300) U/L Urine RBC None seen (0-5/HPF) Urine WBC 1-5/hpf (0-5/HPF) Ur Squamous Epith Cells 1-5 /hpf (0-5/HPF) Amorphous Sediment 1+ Urine Bacteria None seen (None) Urine Mucus 1+ H (Negative) Ur Culture Indicated? Cult not indicated Point of Care Testing Test Results Negative Urine Dip Bedside Urine Glucose Negative Bedside Urine Bilirubin - Negative Bedside Urine Ketone +++ 80 Urine Specific [place] 1.010 Bedside Urine Occult Blood - Negative Bedside Urine pH 9.0 Bedside Urine Protein + 30 Bedside Urine Urobilinogen - Negative Bedside Urine Nitrite - Negative Bedside Urine Leukocytes - Negative Esterase Discharge Plan Departure Patient Disposition: Home Clinical Impression: Nausea & vomiting Instructions: DI for Gastric Ulcer, DI for Peptic Ulcer Activity Restrictions/Additional Instructions: Thank you for coming to the [facility] Emergency Department today. As we discussed your labwork shows no abnormalities and the CT you had a couple days ago showed no significant concerning organ abnormalities. I suspect that the symptoms you are experiencing are due to gastric ulcers as you described but we are unable to diagnose these here in the emergency department. Please was speak with your primary care provider for evaluation and possible referral to Gastroenterology for a possible endoscope. Please take medications we have prescribed to help with your symptoms. I hope you feel better soon. Prescriptions: New ondansetron 4 mg tablet,disintegrating 4 mg PO Q8H 7 Days Qty: 21 0RF pantoprazole 40 mg tablet,delayed release (DR/EC) 40 mg PO DAILY 14 Days Qty: 14 0RF ondansetron 4 mg tablet,disintegrating 4 mg PO Q8H PRN (Reason: nausea and vomiting) 7 Days Qty: 21 0RF pantoprazole 40 mg tablet,delayed release (DR/EC) 40 mg PO DAILY 14 Days Qty: 14 0RF No Action hydrocortisone acetate 25 mg suppository 25 mg PA DAILY PRN (Reason: hemorrhoids) 14 Days Qty: 12 0RF promethazine 12.5 mg tablet 12.5 mg PO Q12H PRN (Reason: nausea and vomiting) Qty: 10 0RF omeprazole 20 mg capsule,delayed release(DR/EC) 20 mg PO DAILY 14 Days Qty: 14 0RF Referrals: Chad Glynn MD [Primary Care Provider] - Visit Report Forms: Patient Portal/API <Nunu Mckinley DO - Last Filed: 11/16/21 09:48> Cosign ED Attending Subha Attestation: I was immediately available in the department for consultation. Documentation has been reviewed. I agree with assessment and plan.
[2021-11-15 16:42] LABS: HEMOLYSIS 97 (0-50); Potassium 3.9 mmol/L (3.4-5.1)
[2021-11-15 17:00] LABS: Amorphous Sediment Urine 1+; Bacteria Urine None Seen; Culture Indicated Urine Cult Not Indicated; Mucus Urine 1+ (Negative); RBC Urine None Seen (0-5/HPF); Squamous Epithelial Cell Urine 1-5 /HPF (0-5/HPF); WBC Urine 1-5/HPF (0-5/HPF)
[2021-11-15] MEDS: METOCLOPRAMIDE 10 MG/2 ML INJ IV (18:03)
[2021-11-15] MEDS: PANTOPRAZOLE 40 MG VIAL IV (18:03)
[2021-11-15] MEDS: LIDOCAINE VISCOUS 2% 15 ML SOLUTION PO (18:03)
[2021-11-15] MEDS: MAG HYDROX/ALUM/SIMETH 30 ML UDC PO (18:03)
[2021-11-15 19:19] VITALS: BP 135/77; PULSE 70; RESP 18; O2SAT 99
== END 2021-11-15 19:21 | disposition home or self-care (01) ==
PROVIDERS: Emergency Provider Physician Assistant Medical; Family Provider Family Medicine; PCP Family Medicine
DX: R11.2 Nausea with vomiting, unspecified (principal); Z86.16 Personal history of COVID-19
CPT/HCPCS: 36415; 74022; 80053; 81003; 81015; 81025; 83690; 85025; 96361; 96374; 96375; 99284; C9113; J2405; J2765